=== PATIENT | male | born 1985 | race Asian ===

== ENCOUNTER 2018-08-15 07:52 | Emergency (ER) | payer OTHER ==
[~2018-08-15] VITALS: Ht 167.6 cm; Wt 77.1 kg
[2018-08-15 07:59] VITALS: BP_SYST 126
[2018-08-15] MEDS ORDERED: KETOROLAC TROMETHAMINE 60 MG/2 ML VIAL IM ONE (09:00)
[2018-08-15 09:05] LABS: CALCIUM 8.6 mg/dL (8.4-11.0); CREATININE 1.01 mg/dL (0.55-1.30); HEMATOCRIT 44.6 % (36-54); HEMOGLOBIN 14.9 g/dL (14.0-18.0); MEAN CORPUSCULAR HEMOGLOBIN 30 pg (27-31); MEAN CORPUSCULAR HGB CONC 34 % (32-36); MEAN CORPUSCULAR VOLUME 89 fL (79.0-98.0); PLATELET COUNT (AUTO) 257 K/uL (130-430); RED BLOOD CELL COUNT(AUTO) 5.02 MIL/uL (4.2-6.2); RED CELL DISTRIBUTION WIDTH 13.7 % (9.0-15.0); WHITE BLOOD COUNT (AUTO) 8.3 K/uL (4.8-10.8)
[2018-08-15 09:06] LABS: BASOPHILS % (AUTO) 0.4 % (0.0-2.0); EOSINOPHILS # (AUTO) 0.3 K/uL (0.0-0.4); EOSINOPHILS % (AUTO) 3.6 % (0.0-4.0); LYMPHOCYTES # (AUTO) 1.3 K/uL (1.0-5.5); MONOCYTES # (AUTO) 0.9 K/uL (0.0-1.0); NEUTROPHILS # (AUTO) 5.7 K/uL (1.8-7.7)
[2018-08-15 09:10] LABS: ALBUMIN 3.6 g/dL (3.4-4.8); TOTAL BILIRUBIN 0.5 mg/dL (0.0-1.0); URIC ACID 8.7 mg/dL (2.4-7.0)
[2018-08-15 09:12] VITALS: BP_SYST 126
== END 2018-08-15 09:12 | disposition home or self-care (01) ==
LOC: SED 07:52
DX: S93.402A Sprain of unspecified ligament of left ankle, initial encounter (principal); X50.0XXA Overexertion from strenuous movement or load, initial encounter; Y93.I9 Activity, other involving external motion; Y92.89 Other specified places as the place of occurrence of the external cause; Y99.8 Other external cause status
CPT/HCPCS: 36415; 73630; 80053; 84550; 85025; 96372; 99284; J1885

== ENCOUNTER 2018-08-18 12:35 | Emergency (ER) | payer OTHER ==
[~2018-08-18] VITALS: Ht 167.6 cm; Wt 77.1 kg
[2018-08-18 12:58] VITALS: BP_SYST 142
--- NOTE | 2018-08-18 13:01 | NUR ---
Patient to ER bed 05 to gown for evaluation. Side rails up.
--- NOTE | 2018-08-18 13:03 | NUR ---
Pt brought by self,A&Ox4, pt presents to ER with L ankle pain/ swelling after ankle sprain, pt also c/o pain on back of head, skin pink and warm, respirations even and unlabored, pedal pulses equal and normal.
--- NOTE | 2018-08-18 13:08 | NUR ---
Dr Billy at bedside examining patient
--- NOTE | 2018-08-18 13:29 | NUR ---
Patient given written and verbal discharge instructions and verbalizes understanding. ER MD discussed with patient the results and treatment provided. Patient in stable condition. ID arm band removed. No Rx given. Patient educated on pain management and to follow up with PMD. Pain Scale 3/10 tolerable for patient. Opportunity for questions provided and answered. Medication side effect fact sheet provided.
[2018-08-18 13:30] VITALS: BP_SYST 138
== END 2018-08-18 13:30 | disposition home or self-care (01) ==
LOC: SED 12:35
DX: S93.402D Sprain of unspecified ligament of left ankle, subsequent encounter (principal); F41.9 Anxiety disorder, unspecified; M10.072 Idiopathic gout, left ankle and foot; R51 Headache; R03.0 Elevated blood-pressure reading, without diagnosis of hypertension; W50.0XXD Accidental hit or strike by another person, subsequent encounter
CPT/HCPCS: 99281; 99284

== ENCOUNTER 2018-08-23 05:52 | Emergency (ER) | payer OTHER ==
[~2018-08-23] VITALS: Ht 167.6 cm; Wt 77.1 kg
[2018-08-23 05:52] VITALS: BP_SYST 114
[2018-08-23 06:27] VITALS: BP_SYST 114
== END 2018-08-23 06:27 | disposition home or self-care (01) ==
LOC: SED 05:52
DX: M10.072 Idiopathic gout, left ankle and foot (principal)
CPT/HCPCS: 99283